=== PATIENT | female | born 2000 | race Two or more races ===

== ENCOUNTER 2018-07-08 06:49 | Emergency (ER) | payer OTHER ==
[~2018-07-08] VITALS: Ht 162.6 cm; Wt 58.1 kg
[2018-07-10] MEDS ORDERED: PROGESTERONE200 MG PO (02:20)
== END 2018-07-08 21:17 | disposition home or self-care (01) ==
LOC: ER 06:49
DX: O20.0 Threatened abortion (principal)

== ENCOUNTER → 2018-07-09 | Emergency (ER) | payer OTHER ==
[~2018-07-09] VITALS: Ht 165.1 cm; Wt 71.7 kg
[~2018-07-09] MED LIST: PROGESTERONE200 MG PO
== END | disposition home or self-care (01) ==
LOC: ER 21:00
DX: O20.0 Threatened abortion (principal)

== ENCOUNTER 2019-02-11 15:15 | Inpatient (IN) | payer OTHER ==
[~2019-02-11] VITALS: Ht 165.1 cm; Wt 90.7 kg
[2019-02-21] MEDS ORDERED: PRENATAL TABLE1 EAC1 PO (06:39)
[2019-02-27] MEDS ORDERED: Tylenol Extra Streng PO (13:22)
== END 2019-02-27 13:47 | disposition home or self-care (01) | DRG 807 ==
LOC: O/R 15:15 → LDR 02-25 10:44 → OB/GYN 02-25 10:44
PROVIDERS: ADMIT Obstetrics & Gynecology
PROC: 10E0XZZ Delivery of Products of Conception, External Approach (ICD-10-PCS; principal; 2019-02-25)
PROC: 0W8NXZZ Division of Female Perineum, External Approach (ICD-10-PCS; 2019-02-25)
PROC: 3E033VJ Introduction of Other Hormone into Peripheral Vein, Percutaneous Approach (ICD-10-PCS; 2019-02-25)
PROC: 10907ZC Drainage of Amniotic Fluid, Therapeutic from Products of Conception, Via Natural or Artificial Opening (ICD-10-PCS; 2019-02-25)
PROC: 4A1HXCZ Monitoring of Products of Conception, Cardiac Rate, External Approach (ICD-10-PCS; 2019-02-25)
DX: O80 Encounter for full-term uncomplicated delivery (principal); Z37.0 Single live birth; Z3A.38 38 weeks gestation of pregnancy

== ENCOUNTER 2019-02-21 06:26 | Outpatient (CLI) | payer OTHER ==
[2019-02-21] MEDS ORDERED: PRENATAL TABLE1 EAC1 PO (06:39)
== END 2019-02-21 11:35 | disposition home or self-care (01) ==
LOC: OBS/DEL 06:26
DX: O47.1 False labor at or after 37 completed weeks of gestation (principal); O26.893 Other specified pregnancy related conditions, third trimester; R10.2 Pelvic and perineal pain